=== PATIENT | female | born 1990 | race Caucasian/White ===

== ENCOUNTER 2016-08-05 15:07 | Emergency (ER) | payer SELFPAY ==
[~2016-08-05] VITALS: Ht 167.6 cm; Wt 74.8 kg
[2016-08-05 16:35] VITALS: BP 136/74
--- NOTE | 2016-08-05 19:15 | NUR ---
PT TAKEN TO BED 2
--- NOTE | 2016-08-05 19:16 | NUR ---
89Y/O HERE C/O HEADACHES THAT COMES AND GOES X 6 DAYS. DENIES ANY NAUSEA, OR DIZZINESS. NO S/S OF DISTRESS NOTED AT THIS TIME.
--- NOTE | 2016-08-05 19:58 | NUR ---
Dr. Fam evaluating patient at bedside.
[2016-08-05] MEDS ORDERED: SUMAtriptan 6 MG/0.5 ML VIAL SUBQ ONE (20:05)
[2016-08-05 20:56] VITALS: BP 126/86
--- NOTE | 2016-08-05 20:56 | NUR ---
Patient discharged with v/s stable. Written and verbal after care instructions given and explained. Patient alert, oriented and verbalized understanding of instructions. Ambulatory with steady gait. All questions addressed prior to discharge. ID band removed. Patient advised to follow up with PMD. Rx of IMITREX given. Patient educated on indication of medication including possible reaction and side effects. Opportunity to ask questions provided and answered.
== END 2016-08-05 20:56 | disposition home or self-care (01) ==
LOC: MED 15:12
DX: G43.909 Migraine, unspecified, not intractable, without status migrainosus (principal)
CPT/HCPCS: 81002; 81025; 96372; 99283; J3030

== ENCOUNTER 2016-08-09 04:50 | Emergency (ER) | payer SELFPAY ==
[~2016-08-09] VITALS: Ht 167.6 cm; Wt 75.3 kg
[2016-08-09 05:03] VITALS: BP 142/91
[2016-08-09] MEDS ORDERED: NACL 0.9% 1,000 ML IV ONE (05:07)
[2016-08-09] MEDS ORDERED: METOCLOPRAMIDE 10 MG/2 ML INJ VIAL IVP ONE (05:10)
[2016-08-09] MEDS ORDERED: diphenhydrAMINE 50 MG/ML VIAL IVP ONE (05:10)
[2016-08-09] MEDS ORDERED: KETOROLAC 30 MG/ML VIAL IVP ONE (05:10)
--- NOTE | 2016-08-09 05:30 | NUR ---
26 YO FEMALE PATIENT PRESENTS TO ED WITH MIGRIANE SINCE LAST WEEK ALL DAY AND CURRENT MEDICATION NOT WORKING . DENIES N/V/D; SKIN IS PINK/WARM/DRY; AAOX4 WITH EVEN AND STEADY GAIT; LUNGS CLEAR BL; HR EVEN AND REGULAR; PT DENIES ANY FEVER, CP, SOB, OR COUGH AT THIS TIME; PATIENT STATES PAIN OF 10/10 AT THIS TIME; VSS; PATIENT POSITIONED FOR COMFORT; HOB ELEVATED; BEDRAILS UP X2; BED DOWN. ER MD MADE AWARE OF PT STATUS.
--- NOTE | 2016-08-09 05:32 | NUR ---
ED PHYSICIAN AT PT BEDSIDE TO SEE PT.
[2016-08-09] MEDS ORDERED: MORPHINE SULFATE 4 MG/ML SYR IVP ONE (06:15)
[2016-08-09 06:55] VITALS: BP 106/58
--- NOTE | 2016-08-09 06:55 | NUR ---
Patient discharged with v/s stable. Written and verbal after care instructions given and explained. Patient alert, oriented and verbalized understanding of instructions. Ambulatory with steady gait. All questions addressed prior to discharge. ID band removed. Patient advised to follow up with PMD. Rx of REGLAN AND FIORICET given. Patient educated on indication of medication including possible reaction and side effects. Opportunity to ask questions provided and answered.
== END 2016-08-09 06:55 | disposition home or self-care (01) ==
LOC: MED 04:50
DX: R51 Headache (principal); F17.210 Nicotine dependence, cigarettes, uncomplicated; Z90.49 Acquired absence of other specified parts of digestive tract
CPT/HCPCS: 96374; 96375; 99284; J1200; J1885; J2270; J2765; J7030

== ENCOUNTER 2016-08-12 19:07 | Emergency (ER) | payer SELFPAY ==
[~2016-08-12] VITALS: Ht 167.6 cm; Wt 75.3 kg
[2016-08-12 19:11] VITALS: BP 156/95
--- NOTE | 2016-08-12 19:18 | NUR ---
TO ER BED 6
[2016-08-12] MEDS ORDERED: HYDROcodone/APAP 5/325 MG 1 TAB TAB PO ONE (19:25)
--- NOTE | 2016-08-12 19:25 | NUR ---
26/F BIB FAMILY C/O HEADACHE 2 DAYS. PT STATES LEFT SIDE OF HEAD, PT STATES SHE IS PHOTOPOBIC. PT DENIES INJURY OR TRAUMA. DENIES N/V/D; SKIN IS PINK/WARM/DRY; AAOX4 WITH EVEN AND STEADY GAIT; LUNGS CLEAR BL; HR EVEN AND REGULAR; PT DENIES ANY FEVER, CP, SOB, OR COUGH AT THIS TIME; PATIENT STATES PAIN OF 9/10 AT THIS TIME; VSS; PATIENT POSITIONED FOR COMFORT; HOB ELEVATED; BEDRAILS UP X2; BED DOWN. ER MD MADE AWARE OF PT STATUS.
--- NOTE | 2016-08-12 19:30 | NUR ---
ORDERED MEDS WAS GIVEN . PT TOLERATED WELL.
--- NOTE | 2016-08-12 20:27 | NUR ---
Patient discharged with v/s stable. Written and verbal after care instructions given and explained. Patient alert, oriented and verbalized understanding of instructions. Ambulatory with steady gait. All questions addressed prior to discharge. ID band removed. Patient advised to follow up with PMD. Rx of AUGMENTIN, SUDAFED, NAPROSYN given. Patient educated on indication of medication including possible reaction and side effects. Opportunity to ask questions provided and answered.
[2016-08-12 20:36] VITALS: BP 156/95
== END 2016-08-12 20:36 | disposition home or self-care (01) ==
LOC: MED 19:07
DX: J32.9 Chronic sinusitis, unspecified (principal); Z90.49 Acquired absence of other specified parts of digestive tract

== ENCOUNTER 2016-08-15 13:16 | Emergency (ER) | payer SELFPAY ==
[~2016-08-15] VITALS: Ht 167.6 cm; Wt 77.1 kg
[2016-08-15 13:39] VITALS: BP 118/77
--- NOTE | 2016-08-15 15:32 | NUR ---
PT TO BED 2 AT THIS TIME.
--- NOTE | 2016-08-15 15:35 | NUR ---
26F BIB SELF C/O MIGRAINE HEADACHE, THROBBING/ACHING, STARTS IN THE EYES, RADIATES TO BACK OF HEAD AND NECK, 10/10 X 2 WEEKS; PT DENIES TRAUMA OR INJURY TO HEAD AT THIS TIME; STATES HAS SOME BLURRY VISION IN LEFT EYE, BUT ABLE TO SEE IN BOTH EYES AT THIS TIME; A&OX4, BL LUNG SOUNDS CLEAR, RR EVEN/UNLABORED, SKIN IS WARM/DRY/INTACT AT THIS TIME; PT DENIES N/V/D AT THIS TIME. STEADY GAIT. PT RESTING IN BED W/ HOB ELEVATED AND IN LOWEST POSITION; POSITIONED FOR COMFORT; ER MD MADE AWARE OF STATUS. WILL CONTINUE TO MONITOR.
[2016-08-15 18:08] VITALS: BP 126/84
--- NOTE | 2016-08-15 18:08 | NUR ---
Patient discharged with v/s stable. Written and verbal after care instructions given and explained. Patient alert, oriented and verbalized understanding of instructions. Ambulatory with to car. All questions addressed prior to discharge. ID band removed. Patient advised to follow up with PMD. Rx of TYLENOL W/ CODEINE NO.3 TAB & BACTRIM DS 800MG-160MG TAB given. Patient educated on indication of medication including possible reaction and side effects. Opportunity to ask questions provided and answered.
== END 2016-08-15 18:08 | disposition home or self-care (01) ==
LOC: MED 13:16
DX: J32.9 Chronic sinusitis, unspecified (principal); G43.909 Migraine, unspecified, not intractable, without status migrainosus